=== PATIENT | male | born 1955 | race Caucasian/White ===

== ENCOUNTER → 2019-09-24 | Outpatient (CLI) | payer BC, MEDICARE ==
--- NOTE | 2019-09-24 14:14 | CARDNUC ---
[place] [address] CARDIAC NUCLEAR IMAGING REPORT Name: MARCIN WHALEN Room: [facility]#: [id number] Admission: 09/24/19 Attend Phys: Sukhwinder Bearden MD Discharge: Date of : 53 Date of Service: 09/24/19 1413 Report #: [id number] THIS REPORT FOR: cc: Keren Dowell Linda J. DO Biggs, F. Douglas MD [facility] ~ APPROVED REPORT Study performed: 09/24/2019 08:00:00 Indication: Increased exercise intolerance, fatigue. Patient Location: Out-Patient Stress Tech: [facility] Stress Nurse: Macy Martin RN Ht: 6 ft 0 in Wt: 187 lbs BSA: 2.07 m2 BMI: 25.35 Medical History Medical History: Fatigue, exercise intolerance, dyspnea, Cardiomegaly, HLD, Past smoker, ABN EKG, Abdominal discomfort/pressure on exertion. Medications: Simvastatin Allergies: Penicillins Cardiac Risk Factors: Age, FHX of CAD, Hyperlipidemia, SOB, Past Smoker, Cardiomegaly. Previous Cardiac Procedures: None Pretest Chest Pain Characteristics: No chest pain Exercise History: Indeterminate Physical Disabilities: Dyspnea, fatigue. Meds Held (24 hrs): None Resting Data Rest SPECT myocardial perfusion imaging was performed in supine position 30 minutes following the intravenous injection of 10.8 mCi of Tc-99m Sestamibi. Time of rest injection: 08:05 The images were gated to evaluate regional wall motion and calculate left ventricular ejection fraction. Administration Route: IV Administration Site: Right AC Exercise Stress At peak stress, the patient was injected intravenously with 33.0m[place] [address] CARDIAC NUCLEAR IMAGING REPORT Name: MARCIN WHALNE Room: [facility]#: [id number] Admission: 09/24/19 Attend Phys: Sukhwinder Bearden MD Discharge: Date of : 53 Date of Service: 09/24/19 1413 Report #: [id number] of Tc-99m Sestamibi. Time of stress injection: 09:40 Administration Route: IV Administration Site: Right AC Heart Rate at time of stress injection: 136 bpm. Patient continued to exercise for 1 minute(s). Gated Stress SPECT was performed 45 minutes after stress injection. The images were gated to evaluate regional wall motion and calculate left ventricular ejection fraction. Prone imaging was performed. Stress Test Details Stress Test: Exercise stress testing was performed using a Fam protocol. HR Max Heart Rate (APMHR): 155 bpm Resting HR: 72 bpm Target HR (85% APMHR): 131 bpm Max HR Achieved: 138 bpm % of APMHR: 89 Recovery HR: 92 bpm HR response to stress: Normal HR response to stress BP Resting BP: 120/89 mmHg Max BP: 153/84 mmHg Recovery BP: 150/88 mmHg BP response to stress: Normal blood pressure response to stress. ECG Resting ECG: Sinus Rhythm, Anteroseptal ME pattern, LAFB, Lateral ME pattern Stress ECG: unchanged from above ST Change: None Maximum ST Deviation: 0 mm Arrhythmia: VPC's Recovery ECG: unchanged from above Recovery ST Change: None Recovery ST Deviation: 0 mm Recovery Arrhythmia: VPC Clinical Reason for Termination: Completed protocol, Maximal effort Stress Symptoms: Dyspnea, Pallor, Abdominal discomfort/pressure. Exercise duration: 4 min 13 [place] [address] CARDIAC NUCLEAR IMAGING REPORT Name: MARCIN WHALEN Room: [facility]#: [id number] Admission: 09/24/19 Attend Phys: Sukhwinder Bearden MD Discharge: Date of : 53 Date of Service: 09/24/19 1413 Report #: [id number] Exercise capacity: 5.29 METs Overall Exercise Capacity for Age: Major Dysfunction Nurse Comments A 64 year old male presented for a Fam Protocol Nuclear Stress Test r/t increased dyspnea and fatigue. Treadmill somewhat tolerated, patient asked to stop treadmill in stage II r/t difficulty breathing and increased abdominal pressure. Recovery unremarkable. Patient was escorted by staff to Nuclear Medicine for imaging. Patient was stable and stated he felt better at that time. Exercise capacity - major disfunction. Stress ECG Conclusion ECG: Non-ischemic Study Quality Study: Good Artifact: Mild Soft tissue attenuation artifact Lung Uptake: Normal Study Data At rest, the left ventricular ejection fraction was 56%.. Post stress, the left ventricular ejection was 47%.. SSS: Z SRS: 3 SDS: -3 TID = 1.10. Perfusion The resting study demonstrates a small mild apical defect and a moderate in size and mild intensity inferior defect and a small mild lateral basilar defect. The post stress images are unchanged from the rest images described above. Prone images were obtained and demonstrated a small very mild inferior defect. There therefore no reversible defects seen there is no evidence of myocardial ischemia. Images were reviewed using EverySignal. Wall Motion Normal left ventricular wall motion. Nuclear Conclusion ECG Findings: negative for ischemia Clinical Findings: equivocal Nuclear Findings: negative for ischemia Exercise Capacity: [place] [address] CARDIAC NUCLEAR IMAGING REPORT Name: MARCIN WHALEN Room: [facility]#: [id number] Admission: 09/24/19 Attend Phys: Sukhwinder Bearden MD Discharge: Date of : 53 Date of Service: 09/24/19 1413 Report #: [id number] Left Ventricular Function: normal Risk Study: low Normal study. No scintigraphic evidence for myocardial ischemia or scar. <Conclusion> ECG: Non-ischemic <ELECTRONICALLY SIGNED> By: Samantha Ibanez MD, [facility] 09/24/19 1413 141 141 Samantha Ibanez MD, [facility] /INF
== END ==
LOC: M.NUC 09-18 11:34
DX: R94.31 Abnormal electrocardiogram [ECG] [EKG] (principal)

== ENCOUNTER → 2019-10-27 | Outpatient (CLI) | payer BC, MEDICARE ==
[~2019-10-27] MED LIST: CARVEDILOL3.125 MG PO; SPIRONOLACTONE25 M1 PO; SUPER THERAVIT1 EACH PO; ZOCOR40 MG PO
--- NOTE | ~2019-10-27 | PF ---
[address] [address] PULMONARY FUNCTION REPORT Name: MARCIN WHALEN [id number] Admission: 10/27/19 Attend Phys: Yeny Matias Discharge: Date of : 53 Report #: [id number] THIS REPORT FOR: //name// CC: Sukhwinder Dowell DATE OF SERVICE: 10/27/2019 STUDY: Pulmonary function test. FINDINGS: The FEV1/FVC ratio is normal at 80%; however, there is a decrease in the FVC and FEV1 values. The total lung capacity is decreased at 61% with a residual volume that is also decreased at 55%. There is no bronchodilator response. The diffusion capacity is slightly decreased at 69%. CONCLUSION: The PFTs are consistent with a [id number]-[id number]-[id number] restrictive lung disease with a mild decrease in the diffusion capacity. By: [id number] Pinedo DO /nt
== END ==
LOC: M.PUL 11:30
DX: R06.02 Shortness of breath (principal)

== ENCOUNTER → 2019-11-02 | Outpatient (CLI) | payer BC, MEDICARE ==
[2019-11-02] VITALS (8 sets, daily range): BP systolic 98–117; BP diastolic 52–83
[~2019-11-02] VITALS: Ht 182.9 cm; Wt 85.3 kg
[2019-11-02 09:31] LABS: HEMATOCRIT 41.2 % (42.0-52.0); HEMOGLOBIN 14.3 gm/dL (14.0-18.0); MCH 33.2 pg (26.0-34.0); MCHC 34.8 g/dL (28.0-37.0); MCV 95.6 fL (80.0-100.0); MPV 7.5 fl. (7.2-11.1); RBC 4.31 mil/uL (4.50-6.00); RDW-CV 12.8 % (10.5-14.5); WBC 6.3 thou/uL (4.0-11.0)
[2019-11-02 09:40] LABS: ANION GAP 9 mmol/L (7-16); BUN 10 mg/dL (7-18); CALCIUM 8.3 mg/dL (8.5-10.1); CHLORIDE 105 mmol/L (98-107); CO2 25 mmol/L (21-32); CREATININE 0.9 mg/dL (0.6-1.3); GLUCOSE 95 mg/dL (70-99); POTASSIUM 3.9 mmol/L (3.5-5.1); SODIUM 139 mmol/L (136-145)
[2019-11-02 09:42] LABS: APTT 23.2 Seconds (25.0-31.3); PROTIME 10.7 Seconds (9.20-11.50)
[2019-11-02 09:45] LABS: ALBUMIN 3.2 g/dL (3.4-5.0); ALKALINE PHOSPHATASE 95 U/L (46-116); SGOT 49 U/L (15-37); SGPT 54 U/L (30-65); TOTAL BILIRUBIN 0.4 mg/dL (<0.1-1.0); TOTAL PROTEIN 8.1 g/dL (6.4-8.2)
[2019-11-02 09:46] LABS: SERUM ASSESSMENT Clear
[2019-11-02 09:57] LABS: CHOLESTEROL 137 mg/dL (<200); HDL CHOLESTEROL 50 mg/dL (>40); LDL CHOLESTEROL 73 mg/dL (<100); TC:HDL 2.7 Ratio (Not establshd); TRIGLYCERIDE 73 mg/dL (<150); VLDL 15 mg/dL (<40)
--- NOTE | 2019-11-02 11:51 | EKG ---
[place] [address] ELECTROCARDIOGRAM REPORT Name: MARCIN WHALEN Room: [facility]#: [id number] Admission: 11/02/19 Attend Phys: Sukhwinder Bearden MD Discharge: Date of : 53 Date of Service: 11/02/19 1009 Report #: [id number] THIS REPORT FOR: //name// [facility] Test Date: 2019-11-02 Test Time: 10:09:16 Pat Name: MARCIN WHALEN Department: Room: Gender: Metal Box Maker: : 1955 Requested By: Sukhwinder Bearden Order Number: [id number] Saturnino MD: Sukhwinder Bearden Measurements Intervals [place] Rate: 81 P: 8 DE: 203 QRS: -71 QRSD: 116 T: 45 QT: 416 QTc: 483 Interpretive Statements Sinus rhythm Probable left atrial enlargement Nonspecific IVCD with LAD Inferior infarct, old Probable septal infarct, old Compared to ECG 11/16/2008 05:26:11 Myocardial infarct finding now present Sinus bradycardia no longer present First degree AV block no longer present Left ventricular hypertrophy no longer present Electronically Signed On 11-02-2019 11:50:34 CDT by Sukhwinder Bearden [email or web address] <ELECTRONICALLY SIGNED> By: Sukhwinder Bearden MD, FACC 11/02/19 1150 1009 1009 Sukhwinder Bearden MD, FAC /EPI
--- NOTE | 2019-11-02 15:04 | CARD ---
[address] [address] CARDIAC CATH REPORT Name: MARCIN WHALEN Room: [facility]#: [id number] Admission: 11/02/19 Attend Phys: Sukhwinder Bearden MD, F Discharge: Date of : 53 Report #: [id number] THIS REPORT FOR: //name// cc: Keren Dowell Linda J. DO ~ THIS REPORT FOR: //name// APPROVED REPORT Study performed: 11/02/2019 10:36:37 Patient Details Patient Status: Out-Patient Room #: The patient is a 64 year-old male Event Personnel Suleiman Pretty Cell Geneticist, Gay Akers RN, Malaika DanielIS, Aman Montiel RTR, Darlene Slaughter campus director Performed Art Access- R radial artery, Left Heart Catheterization w/ or w/o Coronaries, Hemostasis- Hemoband Indication Abnormal ECG, Dyspnea, Positive stress test Risk Factors Hypercholesterolemia Admission/Lab Medications/Medications given during procedure Heparin Unfract. Procedure Narrative The patient was brought electively to the Cardiac Catheterization Laboratory and was prepped and draped in a sterile manner. The right wrist was infiltrated with 1% Lidocaine subcutaneous anesthesia. A 6 sheath was inserted into the right radial artery. Coronary angiography was performed using coronary diagnostic catheters. The right coronary system was accessed and visualized with a Diagnostic JR 4 6 Fr catheter. The left coronary system was accessed and visualized with a Diagnostic JL 4 6 Fr catheter. The left ventricle was accessed and visualized with a Diagnostic Pigtail 6 Fr catheter. Left ventricular/Aortic Valve gradient assessed via catheter pullback. Left ventriculogram was performed in KNIGHT projection. Closure device was deployed with a 6 [place] [address] CARDIAC CATH REPORT Name: MARCIN WHALEN Room: [facility]#: [id number] Admission: 11/02/19 Attend Phys: Sukhwinder Bearden MD, F Discharge: Date of : 53 Report #: [id number] tolerated the procedure well and there were no complications associated with the procedure. There was no hematoma. Intraoperative Conscious Sedation Sedation start time: 10:51 Case end Time: 11:08 Fentanyl 25.0 mcg Versed 2.0 mg Fluoro Time: 1.9 minutes Dose: DAP 13114 cGycm2 740 mGy Contrast Type and Amount: Omnipaque 100 ml Coronary Angiography The patient's coronary anatomy is right dominant. [place] Artery Percent Stenosis Left Main: 0 % Prox LAD: 0 % Mid/Distal LAD: 30 % Circumflex: 30 % RCA: 30 % Ramus: % Left Ventriculography The left ventricular ejection fraction is estimated to be 40-45%. There is 1+ mitral insufficiency. mild global hypokinesis noted. Hemodynamics The aortic pressure is 77/51 mmHg with a mean of 61 mmHg. The left ventricular pressure is 78/10 mmHg with a mean of mmHg. The left ventricular end diastolic pressure is 18 mmHg. There was no gradient across the aortic valve upon pullback. Pullback from the left ventricle to the aorta revealed no gradient across the aortic valve. Conclusion 1. no significant cad noted 2. nonischemic cardiomyopathy with LVEF 40-45% Recommendations Aggressive Medical Therapy <ELECTRONICALLY SIGNED> By: Sukhwinder Bearden MD, FACC 11/02/19 1503 1503 1503Dchino Bearden MD, FACC /INF
== END | disposition home or self-care (01) ==
LOC: M.CL 09:03
PROVIDERS: Internal Medicine Cardiovascular Disease
DX: R94.39 Abnormal result of other cardiovascular function study (principal); R06.00 Dyspnea, unspecified; I42.9 Cardiomyopathy, unspecified; E78.00 Pure hypercholesterolemia, unspecified; Z98.890 Other specified postprocedural states; Z79.899 Other long term (current) drug therapy; Z88.0 Allergy status to penicillin; Z79.01 Long term (current) use of anticoagulants

== ENCOUNTER 2019-11-26 20:21 | Emergency (ER) | payer BC, MEDICARE ==
[~2019-11-26] VITALS: Ht 182.9 cm; Wt 83.9 kg
[2019-11-26] MEDS ORDERED: LASIX 40 MG TAB40 MG PO (20:47)
[2019-11-26] MEDS ORDERED: LISINOPRIL2.5 MG PO (20:47)
[2019-11-26 21:07] LABS: ABSOLUTE BASOPHILS 0.1 thou/uL (0.0-0.2); ABSOLUTE LYMPHOCYTES 1.2 thou/uL (0.8-5.3); ABSOLUTE MONOCYTES 0.4 thou/uL (0.0-1.2); ABSOLUTE NEUTROPHILS 4.7 thou/uL (1.6-8.1); EOSINOPHILS 0.7 %; HEMOGLOBIN 13.5 gm/dL (14.0-18.0); LYMPHOCYTES 19.3 %; MCH 33.4 pg (26.0-34.0); MCHC 34.5 g/dL (28.0-37.0); MCV 96.7 fL (80.0-100.0); MONOCYTES 5.7 %; MPV 7.9 fl. (7.2-11.1); NUCLEATED RBCS 0 /100WBC; PLATELET COUNT* 188 thou/uL (150-400); POLYS 73.3 %; RBC 4.04 mil/uL (4.50-6.00); RDW-CV 12.8 % (10.5-14.5); WBC 6.4 thou/uL (4.0-11.0)
[2019-11-26 21:15] LABS: CALCIUM 8.1 mg/dL (8.5-10.1); CREATININE 1.1 mg/dL (0.6-1.3); POTASSIUM 4.4 mmol/L (3.5-5.1)
[2019-11-26 21:20] LABS: ALBUMIN 3.4 g/dL (3.4-5.0); TOTAL BILIRUBIN 0.5 mg/dL (<0.1-1.0); TOTAL PROTEIN 7.9 g/dL (6.4-8.2)
[2019-11-26 22:35] LABS: URINE BILIRUBIN NEGATIVE (Negative); URINE BLOOD TRACE (Negative); URINE CLARITY CLEAR; URINE COLOR YELLOW; URINE GLUCOSE-RANDOM NEGATIVE (Negative); URINE KETONES NEGATIVE (Negative); URINE LEUKOCYTES-REFLEX NEGATIVE (Negative); URINE NITRITE-REFLEX NEGATIVE (Negative); URINE PROTEIN 2+ (Negative); URINE SPECIFIC GRAVITY >= 1.030 (1.005-1.030); URINE UROBILINOGEN 0.2 E.U./dl (0.2-1.0)
[2019-11-26 22:46] LABS: HYALINE CASTS 4-10 Moderate /LPF (None Seen); SQUAMOUS 0-3 Few /LPF (0-3)
[2019-11-26 22:47] LABS: CRYSTALS None Seen /LPF (None Seen); MUCUS 0-3 Light strn/LPF (None Seen)
[2019-11-26 22:48] LABS: BACTERIA-REFLEX 1-9 Few /HPF (None Seen); URINE RBC 0-2 Rare /HPF (0-2); URINE WBC-REFLEX 0-5 Rare /HPF (0-5)
[2019-11-26] MEDS ORDERED: ROXICODONE5 M2 PO (23:31)
[2019-11-26] MEDS ORDERED: ZOFRAN ODT4 MG PO (23:31)
[2019-11-26 23:47] VITALS: BP 127/82
[2019-11-27] MEDS ORDERED: AZITHROMYCIN 2250 MG PO (09:04)
--- NOTE | 2019-11-27 09:30 | EKG ---
[place] [address] ELECTROCARDIOGRAM REPORT Name: MARCIN WHALEN Room: [facility]#: [id number] Admission: 11/26/19 Attend Phys: Discharge: 11/26/19 Date of : 53 Date of Service: 11/26/192105 Report #: [id number] THIS REPORT FOR: //name// [facility] ED Test Date: 2019-11-26 Test Time: 21:06:37 Pat Name: MARCIN WHALEN Department: Room: Gender: Data Operations Leader: : 1955 Requested By: Ximena Dexter Order Number: [id number] MD: Sukhwinder Bearden Measurements Intervals [place] Rate: 70 P: 75 WY: 250 QRS: -64 QRSD: 129 T: 57 QT: 480 QTc: 519 Interpretive Statements Sinus rhythm Prolonged [place] interval IVCD, consider atypical RBBB Inferior infarct, old Compared to ECG 11/02/2019 10:09:16 First degree AV block now present Myocardial infarct finding still present Electronically Signed On 11-27-2019 9:28:45 CDT by Sukhwinder Bearden [email or web address] <ELECTRONICALLY SIGNED> By: Sukhwinder Bearden MD, [facility] 11/27/1928 05 05 Sukhwinder Bearden MD, [facility] /EPI
[2019-11-27 23:07] LABS: HEPATITIS B SURFACE AG Negative (Negative)
== END 2019-11-26 23:48 | disposition home or self-care (01) ==
LOC: M.ERS 20:21
PROVIDERS: Emergency Medicine
DX: J90 Pleural effusion, not elsewhere classified (principal); R18.8 Other ascites; R11.10 Vomiting, unspecified; Z95.5 Presence of coronary angioplasty implant and graft; Z88.0 Allergy status to penicillin

== ENCOUNTER 2019-11-27 07:04 | Emergency (ER) | payer BC, MEDICARE ==
[~2019-11-27] VITALS: Ht 182.9 cm; Wt 83.9 kg
[~2019-11-27 07:04] MED LIST changes: +LASIX 40 MG TAB40 MG PO; +LISINOPRIL2.5 MG PO; +ROXICODONE5 M2 PO; +ZOFRAN ODT4 MG PO
[2019-11-27 07:40] LABS: CALCIUM 8.6 mg/dL (8.5-10.1); CREATININE 1.2 mg/dL (0.6-1.3); POTASSIUM 4.3 mmol/L (3.5-5.1)
[2019-11-27] MEDS ORDERED: AZITHROMYCIN 2250 MG PO (09:04)
[2019-11-27 09:21] VITALS: BP 115/82
== END 2019-11-27 09:22 | disposition home or self-care (01) ==
LOC: M.ERS 07:04
PROVIDERS: Personal Emergency Response Attendant
DX: J18.9 Pneumonia, unspecified organism (principal); R10.11 Right upper quadrant pain; Z88.0 Allergy status to penicillin; Z95.5 Presence of coronary angioplasty implant and graft

== ENCOUNTER → 2019-12-01 | Outpatient (CLI) | payer BC, MEDICARE ==
[~2019-12-01] MED LIST changes: +AZITHROMYCIN 2250 MG PO
== END ==
LOC: M.ULTRA 10:06
DX: K76.89 Other specified diseases of liver (principal); J90 Pleural effusion, not elsewhere classified; J98.4 Other disorders of lung

== ENCOUNTER → 2019-12-04 | Outpatient (CLI) | payer BC, MEDICARE ==
[2019-12-04 12:51] LABS: APTT 24.2 Seconds (25.0-31.3); INR 1.1; PROTIME 11.4 Seconds (9.20-11.50)
[2019-12-04 15:18] LABS: SOURCE PLEURAL FLUID; TOTAL VOLUME 1460 ml
[2019-12-04 15:19] LABS: CLARITY CLOUDY
[2019-12-04 15:35] LABS: BF RBC 1429 /mm3; TOTAL CELL COUNT 2215 /mm3
[2019-12-04 16:38] LABS: BF LYMPHOCYTES 79 %; BF MONOCYTES 17 %; BF POLYS 4 %
[2019-12-05 12:07] LABS: BODY FLUID LDH 272 IU/L (()); BODY FLUID PROTEIN 2.8 g/dL (())
[2019-12-06 11:21] LABS: SOURCE PLEURAL
== END ==
LOC: M.LAB 12:00 → M.ULTRA 13:00
PROVIDERS: Internal Medicine Cardiovascular Disease
DX: J90 Pleural effusion, not elsewhere classified (principal); R06.02 Shortness of breath

== ENCOUNTER 2019-12-26 12:26 | Inpatient (IN) | payer BC, MEDICARE ==
[~2019-12-26] VITALS: Ht 182.9 cm; Wt 82.6 kg
--- NOTE | ~2019-12-26 | CON ---
[address] [address] CONSULTATION Name: MARCIN WHALEN Room: [address] IN M.R.#: [id number] Admission: 12/26/19 Attend Phys: Yeny Ferreira Discharge: 12/28/19 Date of : 53 Report #: [id number] THIS REPORT FOR: //name// cc: Keren Dowell Linda J. DO ~ THIS REPORT FOR: //name// CC: Sukhwinder Bearden MD [facility] Keren Lyn DO DATE OF SERVICE: 12/27/2019 REFERRING PHYSICIAN: Joseph Aguilar DO REASON FOR CONSULTATION: Abdominal pain. IMPRESSION: Acute right lower quadrant, right flank pain, most compatible with newly-diagnosed right renal infarct -- no evidence to suggest gastrointestinal source for the same. RECOMMENDATIONS: 1. At the present time, Urology and Surgery involved with the patient's care. Likely, the patient will need to follow up with Hematology where he is currently being worked up for possible multiple myeloma and possible amyloidosis. 2. He did not need any endoscopic evaluations as the last colonoscopy with terminal ileoscopy was performed in October of last year and was unrevealing. 3. The patient states he is scheduled for a PET scan this coming as well as an adipose tissue biopsy and a bone marrow biopsy this coming Saturday and he should keep those appointments. 4. As I have nothing else to offer him at this time, we will sign off. HISTORY OF PRESENT ILLNESS: The patient is a pleasant 64-year-old white male known to me from previous evaluation back in 10/2018, at which time he was referred to me for a screening colonoscopy, the examination was unremarkable. He was admitted to the hospital, however, at this time because of problem with some rather severe right flank pain without any associated nausea and vomiting. He has not had any problem with his bowels or bowel frequency or any bleeding. His weight has been stable. He is currently being worked up for possible multiple myeloma at this time. When coming to the Emergency Room, he underwent a CT scan of the abdomen and pelvis which revealed multiple, what appeared to be, renal infarcts within the right kidney. We were asked to see him for further [place] [address] CONSULTATION Name: MARCIN WHALEN Room: [address]#: [id number] Admission: 12/26/19 Attend Phys: Yeny Ferreira Discharge: 12/28/19 Date of : 53 Report #: [id number] ALLERGIES: PENICILLIN. MEDICATIONS: At home include Roxicodone, Zofran, simvastatin, carvedilol, spironolactone and furosemide. PAST MEDICAL AND SURGICAL HISTORY: Remarkable for dilated cardiomyopathy with ejection fraction 45%. He has had previous transurethral resection of his prostate. He has hyperlipidemia as well. SOCIAL HISTORY: The patient does not smoke. He drinks occasional alcohol. FAMILY HISTORY: Negative. PHYSICAL EXAMINATION: GENERAL: A pleasant 64-year-old gentleman who is awake and alert. CARDIOPULMONARY: Revealed a regular rate and rhythm. LUNGS: Clear. ABDOMEN: Soft and nontender. No rebound or guarding noted. LABORATORY DATA: His laboratory tests from admission revealed a white count of 5.4, hemoglobin 13.5, platelet count 180,000, MCV is 97.2 and RDW is 13.6. His sodium 136, potassium 4.1, chloride 103, bicarbonate 25, BUN 27, creatinine 1.2 for GFR of 61. Total bilirubin 0.6, alkaline phosphatase 108, AST is 52 and ALT is 57. IMAGING: CT scan of the abdomen and pelvis was reviewed and revealed multiple wedge-shaped non-enhancing defects within the right kidney, compatible with renal infarctions, the largest of which measured 4.3 x 4.5 cm. The renal arteries and renal veins are patent. The GI tract appeared normal. DISCUSSION: At the present time, the patient has had pain related to renal infarct, so it is not anything to suggest gastrointestinal source for the same. I do not feel any further evaluation necessary from our standpoint. By: 0314 [id number] Daniel DO /nt
[2019-12-26 12:31] VITALS: BP 118/82
[2019-12-26 13:07] LABS: ABSOLUTE LYMPHOCYTES 1.1 thou/uL (0.8-5.3); ABSOLUTE MONOCYTES 0.4 thou/uL (0.0-1.2); ABSOLUTE NEUTROPHILS 3.9 thou/uL (1.6-8.1); BASOPHILS 0.6 %; EOSINOPHILS 0.7 %; HEMATOCRIT 39.5 % (42.0-52.0); HEMOGLOBIN 13.5 gm/dL (14.0-18.0); LYMPHOCYTES 19.9 %; MCH 33.1 pg (26.0-34.0); MCHC 34.1 g/dL (28.0-37.0); MCV 97.2 fL (80.0-100.0); MONOCYTES 7.2 %; MPV 8.3 fl. (7.2-11.1); NUCLEATED RBCS 0 /100WBC; PLATELET COUNT* 180 thou/uL (150-400); POLYS 71.6 %; RBC 4.07 mil/uL (4.50-6.00); RDW-CV 13.6 % (10.5-14.5); WBC 5.4 thou/uL (4.0-11.0)
[2019-12-26 13:14] LABS: CALCIUM 8.4 mg/dL (8.5-10.1); CREATININE 1.2 mg/dL (0.6-1.3); POTASSIUM 4.1 mmol/L (3.5-5.1)
[2019-12-26 13:18] LABS: ALBUMIN 3.3 g/dL (3.4-5.0); TOTAL BILIRUBIN 0.6 mg/dL (<0.1-1.0)
[2019-12-26 13:50] VITALS: BP 118/82
[2019-12-26 14:30] VITALS: BP 111/80
[2019-12-26 16:39] LABS: URINE BILIRUBIN NEGATIVE (Negative); URINE BLOOD TRACE (Negative); URINE CLARITY CLEAR; URINE COLOR YELLOW; URINE GLUCOSE-RANDOM NEGATIVE (Negative); URINE KETONES NEGATIVE (Negative); URINE LEUKOCYTES-REFLEX NEGATIVE (Negative); URINE NITRITE-REFLEX NEGATIVE (Negative); URINE PROTEIN TRACE (Negative); URINE UROBILINOGEN 0.2 E.U./dl (0.2-1.0)
--- NOTE | 2019-12-26 18:37 | NUR ---
PT ADMITTED ON TELE AT 1620 , REPORT RECEIVED FROM ER NURSE. PT IS AOX4. ON RA. VSS. COMPLAINS OF PAIN IN RIGHT LOWER QUADRANT . DENIES N/V. FENTANYL GIVEN FOR PAIN. GI, SURGERY, HEM/ONC CONSULTED. RENAL US ORDERED ROUTINELY. NO FURTHER COMPLAINT. UA SENT TO LAB. WILL CONTINUE TO MONITOR PT
--- NOTE | 2019-12-26 18:56 | NUR ---
DDIMER 3.96. NOTIFIED. VENOUS US ORDERED. SPOKE WITH WHO WANTED TO LET DR KNOW THAT PT HAS AN APPOINTMENT ON SATURDAY WITH HIS HEM/ONC PHYSICIAN. NOTIFIED.
[2019-12-26 19:50] VITALS: BP 106/78
[2019-12-27] VITALS: BP 113/71
[2019-12-27 04:00] VITALS: BP 99/67
--- NOTE | 2019-12-27 05:22 | NUR ---
PATIENT PROGRESSING TOWARDS GOALS: ABDOMINAL PAIN PARTIALLY RELIEVED WITH HEAT APPLICATION AND MEDICATION PER MAR. PATIENT DENIES N/V/D. UP AD MYRON IN ROOM .CALL LIGHT WITHIN REACH
[2019-12-27 08:00] VITALS: BP 106/73
--- NOTE | 2019-12-27 11:53 | EKG ---
[place] [address] ELECTROCARDIOGRAM REPORT Name: KOBYMARCIN Room: [address] ADM IN M.R.#: [id number] Admission: 12/26/19 Attend Phys: Joseph Aguilar Discharge: Date of : 53 Date of Service: 12/26/19 1305 Report #: [id number] THIS REPORT FOR: //name// [facility] ED Test Date: 2019-12-26 Test Time: 13:05:34 Pat Name: MARCIN WHALEN Department: Room: [facility] Gender: M Author: [facility] : 1955 Requested By: Sergey Leivne Order Number: [id number] MD: Sukhwinder Bearden Measurements Intervals [place] Rate: 71 P: -23 NE: 228 QRS: -76 QRSD: 120 T: 20 QT: 469 QTc: 510 Interpretive Statements Sinus rhythm Prolonged NE interval Nonspecific IVCD with LAD Inferior infarct, old Probable anteroseptal infarct, old Compared to ECG 11/26/2019 21:06:37 No significant changes Electronically Signed On 12-27-2019 11:51:59 CDT by Sukhwinder Bearden [email or web address] <ELECTRONICALLY SIGNED> By: Sukhwinder Bearden MD, FAC 12/27/19 1151 1305 1305 Sukhwinder Bearden MD, FAC /EPI
[2019-12-27 12:00] VITALS: BP 101/72
[2019-12-27 17:08] VITALS: BP 101/70
--- NOTE | 2019-12-27 18:00 | NUR ---
VSS.ABRASIVE GRADER IN PLACE.PAIN MANAGED WELL WITH IV MEDICATIONS.LOWER EXTREMITY ULTRASOUND AND RENAL ULTRASOUND COMPLETED.WILL CONTINUE TO MONITOR FOR DURATION OF SHIFT.CALL LIGHT WITHIN REACH.
[2019-12-27 20:00] VITALS: BP 107/75
--- NOTE | 2019-12-27 20:00 | NUR ---
RECEIVED REPORT AND ASSUMED CARE, ASSESSMENT COMPLETED. STATES HE IS STILL HAVING PAIN INTO HIS RT ABD BUT BETTER. DISCUSSED TESTS TO BE DONE AT END OF WEEK AT ANOTHER FACILITY. TELEMETRY ON SHOWING SR. WILL CONT TO MONITOR AND ASSIST NEEDED.
[2019-12-28] VITALS: BP 103/65
[2019-12-28 04:00] VITALS: BP 106/71
[2019-12-28 04:50] LABS: EOSINOPHILS 0.3 %; HEMOGLOBIN 13.1 gm/dL (14.0-18.0); MONOCYTES 11.4 %; MPV 7.6 fl. (7.2-11.1); RDW-CV 13.8 % (10.5-14.5)
[2019-12-28 04:53] LABS: ABSOLUTE LYMPHOCYTES 1.2 thou/uL (0.8-5.3); ABSOLUTE NEUTROPHILS 6.5 thou/uL (1.6-8.1); BASOPHILS 0.4 %; HEMATOCRIT 38.2 % (42.0-52.0); MCH 33.1 pg (26.0-34.0); MCHC 34.4 g/dL (28.0-37.0); NUCLEATED RBCS 0 /100WBC; PLATELET COUNT* 185 thou/uL (150-400); POLYS 73.9 %; RBC 3.97 mil/uL (4.50-6.00); WBC 8.8 thou/uL (4.0-11.0)
[2019-12-28 05:13] LABS: CREATININE 1.1 mg/dL (0.6-1.3); POTASSIUM 3.8 mmol/L (3.5-5.1); TROPONIN-I LEVEL 0.14 ng/mL (<0.06)
--- NOTE | 2019-12-28 06:59 | NUR ---
SLEPT WELL TONIGHT. NO COMPLAINTS VOICED. NO CHANGE IN ASSESSMENT. HS GOALS OF REST AND SAFETY ACHIEVED. HOURLY ROUNDING OBSERVED.
[2019-12-28 08:07] VITALS: BP 106/71
[2019-12-28 08:40] VITALS: BP 96/64
[2019-12-28] MEDS ORDERED: OXYCODONE HCL 55 MG PO (09:41)
--- NOTE | 2019-12-28 10:14 | 2DMMODE ---
[place] [address] 2 D/M-MODE ECHOCARDIOGRAM Name: MARCIN WHALEN Room: [address] IN [facility]#: [id number] Admission: 12/26/19 Attend Phys: Joseph Aguilar Discharge: Date of : 53 Date of Service: 12/28/19 1012 Report #: [id number] THIS REPORT FOR: cc: Keren Dowell,Jovanni Gavin MD [facility] ~ APPROVED REPORT Study performed: 12/28/2019 08:35:38 EXAM: Comprehensive 2D, Doppler, and color-flow Echocardiogram Patient Location: In-Patient Room #: [facility] Status: routine BSA: 2.05 HR: 80 bpm BP: 106/71 mmHg Rhythm: NSR Other Information Study Quality: Good Indications check for thrombus 2D Dimensions IVSd: 16.35 (7-11mm) LVOT Diam: 20.05 (18-24mm) LVDd: 38.58 mm PWd: 16.42 (7-11mm) Ascending Ao: 41.72 (22-36mm) LVDs: 30.38 (25-40mm) Aortic Root: 36.79 mm Volumes Left Atrial Volume (Systole) LA ESV Index: 40.60 mL/m2 Aortic Valve AoV Peak Milad.: 1.25 m/s AO Peak Gr.: 6.25 mmHg LVOT Max P.87 mmHg AO Mean Gr.: 3.61 mmHg LVOT Mean P.89 mmHg LVOT Max V: 0.98 m/s AO V2 VTI: 18.27 cm LVOT Mean V: 0.64 m/s JACKLYN (VTI): 2.65 cm2 LVOT V1 VTI: 15.35 [place] [address] 2 D/M-MODE ECHOCARDIOGRAM Name: MARCIN WHALEN Room: [address] IN ..#: [id number] Admission: 12/26/19 Attend Phys: Joseph Aguilar Discharge: Date of : 53 Date of Service: 12/28/19 1012 Report #: [id number] Mitral Valve E/A Ratio: 3.27 MV Decel. Time: 128.18 ms MV E Max Milad.: 1.04 m/s MV PHT: 37.17 ms MVA (PHT): 5.92 cm2 TDI E/Lateral E': 20.80 E/Medial E': 20.80 Medial E' Milad.: 0.05 m/s Lateral E' Milad.: 0.05 m/s Pulmonary Valve PV Peak Milad.: 0.94 m/s PV Peak Gr.: 3.54 mmHg Tricuspid Valve RAP Estimate: 15.00 mmHg TR Peak Gr.: 21.51 mmHg RVSP: 36.00 mmHg PA Pressure: 36.00 mmHg Left Ventricle The left ventricle is normal size. There is normal LV segmental wall motion. Moderate concentric left ventricular hypertrophy; granular or sparkling appearance characteristic of amyloid Left ventricular systolic function is normal. The left ventricular ejection fraction is within the normal range. LVEF is 50-55%. Grade IV - fixed restrictive diastolic dysfunction. Right Ventricle The right ventricle is normal size. The right ventricular systolic function is normal. Atria Left atrium is mildly dilated. Right atrium is mildly dilated. Aortic Valve Mild aortic valve sclerosis. No aortic regurgitation is present. There is no aortic valvular stenosis. Mitral Valve The mitral valve is normal in structure. Trace mitral regurgitation. No evidence of mitral valve stenosis. Tricuspid Valve The tricuspid valve is normal in structure[place] [address] 2 D/M-MODE ECHOCARDIOGRAM Name: MARCIN WHALEN Room: [address]#: [id number] Admission: 12/26/19 Attend Phys: Joseph Aguilar Discharge: Date of : 53 Date of Service: 12/28/19 1012 Report #: [id number] regurgitation. Mild pulmonary hypertension. Pulmonic Valve The pulmonary valve is normal in structure. There is no pulmonic valvular regurgitation. Great Vessels The aortic root is normal in size. IVC is dilated and collapses <50% with inspiration. Pericardium There is no pericardial effusion. Left pleural effusion. <Conclusion> Moderate concentric left ventricular hypertrophy; granular or sparkling appearance characteristic of amyloid Left ventricular systolic function is normal. The left ventricular ejection fraction is within the normal range. LVEF is 50-55%. Grade IV - fixed restrictive diastolic dysfunction. The right ventricle is normal size. Left atrium is mildly dilated. Right atrium is mildly dilated. Mild aortic valve sclerosis. No aortic regurgitation is present. There is no aortic valvular stenosis. The mitral valve is normal in structure. Trace mitral regurgitation. The tricuspid valve is normal in structure. Mild tricuspid regurgitation. Mild pulmonary hypertension. IVC is dilated and collapses <50% with inspiration. There is no pericardial effusion. There is normal LV segmental wall motion. The left ventricle is normal size. <ELECTRONICALLY SIGNED> By: Jovanni Crum MD, [facility] 12/28/19 1012 1012 1012 Jovanni Crum MD, FACC /INF
[2019-12-28 12:18] VITALS: BP 109/73
--- NOTE | 2019-12-28 13:51 | NUR ---
I ASSUMED CARE OF THE PATIENT AT 0700. HE IS ALERT AND ORIENTED X4 AND IS UP AD MYRON. BED IS IN THE LOW LOCKED POSITION AND CALL LIGHT IS IN REACH. HOURLY ROUNDING IS COMPLETE AND PATIENT NEEDS ARE MET. PAIN IS DENIED. DISCHARGE IS GIVEN ALONG WITH SCRIPT AND PATIENT UNDERSTANDS FOLLOW UP. ECHO WAS COMPLETED AND DR BROWN SPOKE WITH CARDIOLOGY. PICKED UP AT 1155 IN PERSONAL VEHICLE.
== END 2019-12-28 12:32 | disposition home or self-care (01) | DRG 699 ==
LOC: M.ERS 12:26 → M.2W 13:30 → M.TBA-ER 13:30 → M.2W 14:21
PROVIDERS: Family Medicine; ADMIT Internal Medicine
DX: N28.0 Ischemia and infarction of kidney (principal); I42.9 Cardiomyopathy, unspecified; J90 Pleural effusion, not elsewhere classified; J98.11 Atelectasis; Z96.652 Presence of left artificial knee joint; E78.5 Hyperlipidemia, unspecified; D64.9 Anemia, unspecified; R79.89 Other specified abnormal findings of blood chemistry; Z79.899 Other long term (current) drug therapy; Z88.0 Allergy status to penicillin; Z87.891 Personal history of nicotine dependence

== ENCOUNTER → 2021-01-23 | Outpatient (CLI) | payer OTHER, MEDICARE ==
[~2021-01-23] MED LIST changes: +OXYCODONE HCL 55 MG PO
== END ==
LOC: M.RAD 12:04
PROVIDERS: ATTEND Family Medicine
DX: I51.7 Cardiomegaly (principal); R07.89 Other chest pain; R06.02 Shortness of breath; R91.8 Other nonspecific abnormal finding of lung field